=== PATIENT | female | born 1955 | race African-American/Black ===

== ENCOUNTER 2016-07-14 12:22 | Emergency (ER) | payer OTHER ==
[~2016-07-14] VITALS: Ht 167.6 cm; Wt 86.2 kg
[2016-07-14] VITALS (9 sets, daily range): BP systolic 133–168; BP diastolic 70–123
[2016-07-14] MEDS ORDERED: Morphine Sulfate 4mg/ml Inj IVP ONE ×3 (12:45→16:45)
--- NOTE | 2016-07-14 13:05 | Emergency Room Report ---
History of Present Illness General Chief Complaint: Lower Extremity Injury Source: Patient Present Illness HPI Patient ADELINA complains of left knee pain x1 hour. States that she dislocated her left knee while she was walking spontaneously. States that she had a significant map in one year ago and went to [place] with a reduce it using a machine. Patient states that she's had multiple knee surgeries of her left knee and her pain is currently 10/10 and worse with touch. States she cannot bend her knee as well due to pain. Patient denies any numbness, cyanosis, paresthesia, or pressure. Allergies: Coded Allergies: No Known Allergies (Unverified , 07/14/16) Patient History Limited by: language barrier Past Medical History: see triage record Past Surgical History: unable to obtain Pertinent Family History: none Reviewed Nursing Documentation: PMH: Agreed, PSxH: Agreed Nursing Documentation-PMH Past Medical History: No History, Except For Hx Hypertension: Yes Review of Systems All Other Systems: negative except mentioned in HPI Physical Exam Vital Signs Date Time Temp Pulse Resp B/P Pulse Ox O2 Delivery O2 Flow Rate FiO2 07/14/16 12:21 97.5 76 16 154/110 99 Room Air Sp02 EP Interpretation: reviewed General Appearance: alert, GCS 15, mild distress Eyes: bilateral eye normal inspection ENT: normal ENT inspection Neck: supple/symm/no masses, tender midline Respiratory: lungs clear, normal breath sounds, no respiratory distress Cardiovascular #1: normal inspection, normal peripheral pulses, regular rate, rhythm, no edema, normal capillary refill Cardiovascular #2: 2+ dorsalis pedis (R), 2+ dorsalis pedis (L) Musculoskeletal: decreased range of motion, tender - left knee appears to be posteriorly dislocated and tender to palpation Neurologic: alert, oriented x3, responsive, human resources benefits specialist III-XII nml as tested, motor strength/tone normal, sensory intact, no Babinski, no pronator Psychiatric: normal inspection Skin: normal color, no rash, warm/dry Lymphatic: no adenopathy Procedures Procedural Sedation Consent: Verbal Heart: normal Lungs: normal Abdomen: normal Extremities: abnormal - knee dislocation Procedures/Plans: Closed Reduction Plan for Moderate Sedation: Propofol Additional Comments: Procedure was completed by Dr. Juli Gill Medical Decision Making PA Attestation Dr. Monroy my supervising physician with whom patient management has been discussed with. Diagnostic Impression: Primary Impression: Knee joint dislocation Qualified Codes: S83.105A - Unspecified dislocation of left knee, initial encounter ER Course Pt. presents to the ED c/o left knee pain Ddx considered but are not limited to fracture, contusion, dislocation Vital signs: are WNL, pt. is afebrile H&PE are most consistent with dislocation of the left knee ORDERS: XR Left Knee ED INTERVENTIONS: Conscious sedation with closed reduction of left knee. Knee immobilizer Patient care transferred to Dr. Juli Monroy. Other X-Ray Diagnostic Results Other X-Ray Diagnostic Results : X-Ray Ordered: Left knee EP Interpretation: Yes Findings: other - Posterior dislocation of left knee Number of Views: 3 Last Vital Signs Date Time Temp Pulse Resp B/P Pulse Ox O2 Delivery O2 Flow Rate FiO2 07/14/16 18:29 97.5 77 18 143/70 100 Nasal Cannula 4.0 Status: unchanged Disposition: XFER [facility] Condition: Stable TRAMAINE HERNANDEZ Jul 14, 2016 13:05
[2016-07-14 13:41] LABS: BASOPHILS % (AUTO) 0.8 % (0.0-2.0); EOSINOPHILS % (AUTO) 1.4 % (0.0-3.0); LYMPHOCYTES % (AUTO) 41.6 % (20.0-45.0); MEAN CORPUSCULAR HGB CONC 32.3 G/DL (32.0-36.0); MEAN CORPUSCULAR VOLUME 93 FL (80-99); MEAN PLATELET VOLUME 7.4 FL (6.5-10.1); MONOCYTES % (AUTO) 5.9 % (1.0-10.0); NEUTROPHILS % (AUTO) 50.3 % (45.0-75.0); PLATELET COUNT 230 K/UL (150-450); RED BLOOD COUNT 4.21 M/UL (4.20-5.40); RED CELL DISTRIBUTION WIDTH 12.9 % (11.6-14.8); WHITE BLOOD COUNT 7.2 K/UL (4.8-10.8)
[2016-07-14 13:53] LABS: ALANINE AMINOTRANSFERASE 19 U/L (3-33); ALBUMIN/GLOBULIN RATIO 1.7 (1.0-2.7); ANION GAP 15 (5-15); ASPARTATE AMINO TRANSFERASE 15 U/L (5-40); CALCIUM 6.4 mg/dL (8.6-10.2); CARBON DIOXIDE 19 mEQ/L (20-30); CHLORIDE 112 mEQ/L (98-107); CREATININE 0.5 mg/dL (0.5-0.9); GLOMERULAR FILTRATION RATE > 60 mL/min (>60); HEMOLYSIS 4; SODIUM 146 mEQ/L (135-145); TOTAL PROTEIN 4.6 g/dL (6.6-8.7)
[2016-07-14 13:57] LABS: POTASSIUM 2.5 mEQ/L (3.4-4.9)
[2016-07-14] MEDS ORDERED: Propofol 10mg/ml 20ml IV ONE (15:00)
--- NOTE | 2016-07-14 15:15 | Diagnostic Imaging Report ---
Indications: Injury, pain Technique: Three views of the left knee Comparison: None Findings: There is a left knee prosthesis. There is complete anterior dislocation, with the tibia displaced anteriorly by one bone width. No definite acute fracture. Impression: Positive for complete left knee dislocation No definite acute fracture Knee prosthesis
--- NOTE | 2016-07-14 16:03 | Diagnostic Imaging Report ---
Indication: Post reduction Technique: One lateral view of the right knee Comparison: 2 hours earlier Findings: There is slight improvement of anatomic alignment of previously dislocated right knee with prosthesis, but is still remains completely dislocated anteriorly. There is evidence of a joint effusion Impression: Persistent dislocation of right knee prosthesis, as described
--- NOTE | 2016-07-17 17:25 | Emergency Room Report ---
History of Present Illness General Chief Complaint: Lower Extremity Injury Source: Patient Present Illness Allergies: Coded Allergies: No Known Allergies (Unverified , 07/14/16) Nursing Documentation-[facility] Past Medical History: No History, Except For Hx Hypertension: Yes Physical Exam Vital Signs Date Time Temp Pulse Resp B/P Pulse Ox O2 Delivery O2 Flow Rate FiO2 07/14/16 12:21 97.5 76 16 154/110 99 Room Air 07/14/16 15:15 4.0 Procedures Splinting Splinting : Consent: Verbal Pre-Made Type: knee immobilizer Pre-Proc Neuro Vasc Exam: normal Post-Proc Neuro Vasc Exam: normal Patient Tolerated: Well Complications: None Joint Reduction Joint Reduction : Consent: Written Joint Reduction Site: knee (L) Procedural Sedation: Yes Reduction Attempts: Other - two Pre-Procedure NV Exam: Yes Post-Procedure NV Exam: Yes Post Joint Reduction Film: joint not reduced Patient Tolerated: Well Complications: None Progress After appropriate sedation patient had traction applied to the left lower leg along with, upward pressure [id number] at the distal femur, this was performed on 2 different occasions there was some clinical improvement, Procedural Sedation Consent: Written Pre-Sedation Assessment: Plan for Sedation Discuss Airway Assessment (Malampati): II Heart: normal Lungs: normal Abdomen: normal Extremities: normal Procedures/Plans: Closed Reduction Plan for Moderate Sedation: Propofol ASA Score: II Total Time: 0020 Communication: No Apparent Limitation Mental Status: Awake Respiration: Unlabored Skin Condition: WNL Abdomen: WNL Nausea: NO Vomiting: NO Additional Comments: Total [id number] time 20 minutes Medical Decision Making Diagnostic Impression: Primary Impression: Knee joint dislocation ER Course Please defer to the initial note for the full history exam and presentation At this time after procedural sedation, consent, and attempted reduction(please defer to the specific area of the note for the specifics) Patient does show approximately 50% reduction however the knee joint distal showing signs of dislocation Patient remains neurovascularly intact has good pulses distally good cap refill This is important specifically given the dislocation of any given the popliteal and other large vasculatures At this point the patient's orthopedist was contacted he has agreed to accept the patient at [facility] Patient was further medicated has improved regarding pain And set for transfer and further stabilized condition , Rhythm Strip Diag. Results EP Interpretation: yes Rate: 77 Rhythm: NSR, no PVC's, no ectopy Other X-Ray Diagnostic Results Other X-Ray Diagnostic Results #1: EP Interpretation: Yes Findings: no fractures, no soft tissue swelling, other - Completely dislocation, with posterior displacement Number of Views: 3 - left knee Other X-Ray Diagnostic Results #2: EP Interpretation: Yes Findings: no fractures, no soft tissue swelling, other - Attempted reduction , reveals some improvement up to 50% resolution, however dislocation so present Number of Views: 2 - status post left knee reduction attempt Last Vital Signs Date Time Temp Pulse Resp B/P Pulse Ox O2 Delivery O2 Flow Rate FiO2 07/14/16 19:00 97.5 77 18 143/70 100 Nasal Cannula 4.0 Status: improved Disposition: XFER [facility] Condition: Stable Referrals: NOT CHOSEN SANDER/,REFERRING (PCP) NEHEMIAH CRUZ D.O. Jul 17, 2016 17:25
== END 2016-07-14 19:00 | disposition short-term general hospital (02) ==
LOC: EDBD 12:22 → EMR 13:05
DX: S83.195A Other dislocation of left knee, initial encounter (principal); Y93.01 Activity, walking, marching and hiking; Y92.89 Other specified places as the place of occurrence of the external cause; Z96.652 Presence of left artificial knee joint; I10 Essential (primary) hypertension
CPT/HCPCS: 27552; 29530; 36415; 73560; 73562; 80053; 85025; 96374; 96375; 99284; J2270; J2405; J2704